=== PATIENT | female | born 1945 | race Caucasian/White ===

== ENCOUNTER 2025-03-29 00:19 | Emergency (ER) | payer MEDICARE, SELFPAY ==
--- NOTE | ~2025-03-29 | XR_ITS ---
Examination: XR chest 1V portable Clinical History: chest pain Comparison: None Technique: Portable AP Findings: Heart size normal. Elevated right hemidiaphragm, associated basilar atelectasis. Mild scattered interstitial changes. No acute bony abnormality. IMPRESSION: 1. No definite acute cardiopulmonary findings given portable technique. 2. Mild interstitial changes likely chronic but no prior for comparison. Interstitial edema and/or pneumonitis not excluded. Reviewed, dictated and finalized at location R. [facility]ATER IMPRESSION: 1. No definite acute cardiopulmonary findings given portable technique. 2. Mild interstitial changes likely chronic but no prior for comparison. Inter stitial edema and/or pneumonitis not excluded.
--- NOTE | 2025-03-29 00:24 | ECG_ITS ---
Test Date: 2025-03-29 00:35:32 Measurements Intervals [place]ma Rate: 87 P: 38 KS: 254 QRS: 60 QRSD: 133 T: -3 QT: 387 QTc: 466 Interpretive Statements SINUS RHYTHM WITH FIRST DEGREE AV BLOCK WITH FREQUENT VENTRICULAR PREMATURE COMPLEXES IN A PATTERN OF VENTRICULAR TRIGEMINY RIGHT BUNDLE BRANCH BLOCK [120+ ms QRS DURATION, UPRIGHT V1, 40+ ms S IN I/aVL/V4/V5/V6] ABNORMAL ECG No previous ECG available for comparison Electronically Signed On 03-29-2025 09:02:55 [employer]ACH TANK TENDER by Sarwat Vaughn M.D.
[2025-03-29 00:41] VITALS: BP 116/61; PULSE 90; RESP 22; TEMP 36.9; O2SAT 96
[2025-03-29 00:47] LABS: Hematocrit 41.6 % (37.0-47.0); Hemoglobin 13.4 g/dL (12.0-15.0); Immature Granulocyte Percent A 0.4 % (0-0.5); Lymphocytes Absolute Auto 1.12 K/mm3 (0.9-3.2); Mean Corpuscular HGB Conc 32.2 g/dl (32-36); Mean Corpuscular Hemoglobin 30.6 pg (26-34); Mean Corpuscular Volume 95.0 fl (80-100); Nucleated Red Blood Cells Absolute Auto 0.000 K/mm3 (0.0-0.012); Nucleated Red Blood Cells Perc 0.0 % (0.0-0.2); Platelet Count Result 250 k/mm3 (150-375); Red Blood Count 4.38 M/mm3 (4.2-5.4); White Blood Count 9.1 K/mm3 (4.5-10.0)
[2025-03-29 00:51] VITALS: O2SAT 96
[2025-03-29 00:58] LABS: Alanine Aminotransferase 41 U/L (6-35); Albumin Level 4.3 g/dL (3.5-5.1); Alkaline Phosphatase 78 U/L (38-126); Anion Gap 8 mmol/L (4-12); Aspartate Amino Transferase 74 U/L (14-36); Bilirubin,Total 0.6 mg/dL (0.2-1.3); Blood Urea Nitrogen 18 mg/dL (7-17); Calcium 9.3 mg/dL (8.4-10.2); Carbon Dioxide 26 mmol/L (22-30); Chloride 106 mmol/L (98-107); Estimated CRCL calculation 62 ml/min; Estimated Glomerular Filt Rate > 60; Glucose 101 mg/dL (65-110); Lipase 137 U/L (23-300); Potassium 3.6 mmol/L (3.4-5.0); Sodium 140 mmol/L (137-145); Total Protein 7.8 g/dL (6.3-8.2)
[2025-03-29 01:09] LABS: Troponin I < 0.012 ng/mL (0.000-0.034)
[2025-03-29 01:19] LABS: INR 1.0; Prothrombin Time 13.2 Seconds (11.1-14.7)
[2025-03-29 01:20] LABS: Partial Thromboplastin Time 35.6 Seconds (22.3-36.8)
--- NOTE | 2025-03-29 03:35 | ECG_ITS ---
Test Date: 2025-03-29 03:42:23 Measurements Intervals [place] Rate: 76 P: 21 TN: 241 QRS: 41 QRSD: 138 T: 2 QT: 439 QTc: 495 Interpretive Statements SINUS RHYTHM WITH FIRST DEGREE AV BLOCK RIGHT BUNDLE BRANCH BLOCK [120+ ms QRS DURATION, UPRIGHT V1, 40+ ms S IN I/aVL/V4/V5/V6] ABNORMAL ECG Compared to ECG 03/29/2025 00:35:32 Ventricular premature complex(es) no longer present Electronically Signed On 03-29-2025 09:03:27 [employer]PORATE PLANNING MANAGER by Sarwat Vaughn M.D.
[2025-03-29 03:53] LABS: Troponin I < 0.012 ng/mL (0.000-0.034)
--- NOTE | 2025-03-29 04:00 | ED.GENADULT ---
HPI - General Adult General Chief complaint: Chest Pain Stated complaint: CHEST PAIN X 30 MIN [employer] Time Seen by Provider: 03/29/25 02:42 History of Present Illness HPI narrative: patient is a 79-year-old female who presents emergency department with chief complaint of chest pain. Patient reports that she was staying in a hotel while on a trip in her started having pressure in her chest the patient reports pain lasted for about an hour reports that she had a cath about 6 years ago that was negative patient states the pain has resolved itself prior to arrival in the emergency department. Related Data Allergies Allergy/AdvReac Type Severity Reaction Status Date / Time No Known Allergies Allergy Verified 03/29/25 00:53 Review of Systems Review of Systems: A 10 system review of systems was completed on the patient and is negative except for what is stated in the HPI. Nursing and ancillary documentation was reviewed. Course Course Emergency Course: GENERAL: Well-appearing, well-nourished, and in no acute distress. HEAD: Normocephalic, atraumatic. EYES: PERRLA and EOMI. ENT: Nares clear, no rhinorrhea or epistaxis. Mucous membranes moist. NECK: Supple. CHEST: Clear to auscultation. No respiratory distress. HEART: Regular rate and rhythm. No murmur heard. Normal peripheral pulses. ABDOMEN: Soft, nontender, nondistended, normal active bowel sounds. EXTREMITIES: Normal range of motion. No edema. SKIN: Warm, dry, no rash. NEURO: No focal deficits. Alert and oriented x3. PSYCH: Normal mood and affect. Vital Signs Vital signs: Vital Signs Temperature 36.9 C 03/29/25 00:41 Pulse Rate 90 03/29/25 00:41 Respiratory Rate 22 H 03/29/25 00:41 Blood Pressure 116/61 03/29/25 00:41 Pulse Oximetry 96 03/29/25 00:41 Oxygen Delivery Room Air 03/29/25 00:41 Temperature 36.9 C 03/29/25 00:41 Pulse Rate 90 03/29/25 00:41 Respiratory Rate 22 H 03/29/25 00:41 Blood Pressure 116/61 03/29/25 00:41 Pulse Oximetry 96 03/29/25 00:51 Oxygen Delivery Room Air 03/29/25 00:51 Medical Decision Making [facility] Narrative Medical decision making narrative: differential diagnosis includes ACS, noncardiac chest, unstable angina, EKG showed right bundle-branch block with PVCs chest x-ray showed no focal infiltrate initial troponin was negative repeat troponin at 3 hours post arrival was negative patient's pain is resolved was resolved upon arrival to the emergency department. Patient will be discharged to follow-up with her primary care provider Vital Signs Vital Signs: Vital Signs Temperature 36.9 C 03/29/25 00:41 Pulse Rate 90 03/29/25 00:41 Respiratory Rate 22 H 03/29/25 00:41 Blood Pressure 116/61 03/29/25 00:41 Pulse Oximetry 96 03/29/25 00:41 Oxygen Delivery Room Air 03/29/25 00:41 Temperature 36.9 C 03/29/25 00:41 Pulse Rate 90 03/29/25 00:41 Respiratory Rate 22 H 03/29/25 00:41 Blood Pressure 116/61 03/29/25 00:41 Pulse Oximetry 96 03/29/25 00:51 Oxygen Delivery Room Air 03/29/25 00:51 Lab Data 03/29/25 00:34 03/29/25 00:34 Labs: Lab Results 03/29/25 03/29/25 Range/Units 00:34 03:24 WBC 9.1 (4.5-10.0) K/mm3 RBC 4.38 (4.2-5.4) M/mm3 Hgb 13.4 (12.0-15.0) g/dL Hct 41.6 (37.0-47.0) % MCV 95.0 (80-100) fl MCH 30.6 (26-34) pg MCHC 32.2 (32-36) g/dl RDW 14.5 (11.5-14.5) % Plt Count 250 (150-375) k/mm3 MPV 9.4 (7.4-10.4) fl Immature Gran % (Auto) 0.4 (0-0.5) % Neut % (Auto) 79.5 H (45.5-73.1) % Lymph % (Auto) 12.3 L (18.3-44.2) % Catron % (Auto) 5.6 (2.6-8.5) % Eos % (Auto) 1.9 (0-4.4) % Baso % (Auto) 0.3 (0.2-1.2) % Lymph # (Auto) 1.12 (0.9-3.2) K/mm3 Catron # (Auto) 0.5 (0.1-0.6) K/mm3 Eos # (Auto) 0.2 (0-0.3) K/mm3 Baso # (Auto) 0.0 (0.0-0.1) K/mm3 Abs Immat Gran (auto) 0.04 H (0.00-0.031) K/mm3 Absolute Neuts (auto) 7.3 H (1.3-6.7) K/mm3 Absolute Nucleated RBC 0.000 (0.0-0.012) K/mm3 Nucleated RBC % 0.0 (0.0-0.2) % PT 13.2 (11.1-14.7) Seconds INR 1.0 APTT 35.6 (22.3-36.8) Seconds Sodium 140 (137-145) mmol/L Potassium 3.6 (3.4-5.0) mmol/L Chloride 106 (98-107) mmol/L Carbon Dioxide 26 (22-30) mmol/L Anion Gap 8 (4-12) mmol/L BUN 18 H (7-17) mg/dL Creatinine 0.80 (0.7-1.0) mg/dL Estim Creat Clear Calc 62 ml/min Estimated GFR > 60 (59 - ) Glucose 101 (65-110) mg/dL Calcium 9.3 (8.4-10.2) mg/dL Total Bilirubin 0.6 (0.2-1.3) mg/dL AST 74 H (14-36) U/L ALT 41 H (6-35) U/L Alkaline Phosphatase 78 (38-126) U/L Troponin I < 0.012 < 0.012 (0.000-0.034) ng/mL Total Protein 7.8 (6.3-8.2) g/dL Albumin 4.3 (3.5-5.1) g/dL Lipase 137 (23-300) U/L Discharge Plan Discharge Clinical Impression: Atypical chest pain Patient Disposition: Home Condition: Stable Instructions: Antibiotic Form, Chest Pain (ED) Additional Instructions: Please follow-up with your primary care provider you will most likely will need additional evaluation as an outpatient that could include a stress test Patient Language: Hungarian Follow-up/Referrals: Bee Amanda [Other] Time of Disposition: 04:04 Quality HEART score for chest pain patients History: slightly suspicious ECG: non specific repolarization disturbance/LBTB/PM Age: > or = to 65 years Risk factors: 1 or 2 risk factors Troponin: < or = to 1x normal limit Heart score: 4
[2025-03-29 04:23] VITALS: BP 112/66; PULSE 81; RESP 16; O2SAT 97
== END 2025-03-29 04:25 | disposition home or self-care (01) ==
PROVIDERS: Emergency Provider Emergency Medicine
DX: R07.89 Other chest pain (principal); R94.31 Abnormal electrocardiogram [ECG] [EKG]
CPT/HCPCS: 36415; 71045; 80053; 83690; 84484; 85025; 85610; 85730; 93005; 99284